=== PATIENT | female | born 1965 | race Caucasian/White ===

== ENCOUNTER 2017-08-16 01:50 | Emergency (ER) | payer BC ==
[~2017-08-16] VITALS: Ht 167.6 cm; Wt 72.0 kg
[~2017-08-16 01:50] MED LIST: CELEXA10 MG PO; MOTRIN800 MG PO; PHENTERMINE HCL15 MG PO; TYLENOL EXTRA500 MG PO
[2017-08-16 02:32] LABS: HEMATOCRIT 37.9 % (36.0-46.0); HEMOGLOBIN 12.6 G/DL (11.9-15.5); MCH 30.7 PG (29.0-34.0); MCHC 33.2 G/DL (30.0-36.0); MCV 92.2 FL (83-99); PLATELET COUNT 189 K/uL (156-360); RBC DIS.WIDTH-CV 13.4 % (11.8-14.6); RBC DIS.WIDTH-SD 45.9 % (39-53); RED BLOOD COUNT 4.11 M/uL (3.80-5.20); WHITE BLOOD COUNT 6.3 K/uL (4.1-10.2)
[2017-08-16 02:43] LABS: ALBUMIN 3.8 g/dL (3.2-4.8); CHLORIDE 106 mEq/L (99-109); POTASSIUM 3.9 mEq/L (3.7-5.4); SODIUM 142 mEq/L (136-147)
[2017-08-16 02:45] LABS: GLUCOSE 133 mg/dL (70-99)
[2017-08-16 02:46] LABS: TOTAL PROTEIN 6.1 g/dL (6.4-8.3)
[2017-08-16 02:47] LABS: TOTAL BILIRUBIN 0.3 mg/dL (0.0-1.0)
[2017-08-16 02:49] LABS: ALKALINE PHOSPHATASE 44 IU/L (3-129); CREATININE 1.1 mg/dL (0.6-1.3); GFR ESTIMATE (CALCULATED) 56 mL/min/
[2017-08-16 02:50] LABS: UREA NITROGEN (BUN) 18 mg/dL (9-23)
[2017-08-16 02:51] LABS: AST (GOT) 16 IU/L (2-34)
[2017-08-16 02:52] LABS: ALT (GPT) 14 IU/L (3-49)
[2017-08-16 02:58] LABS: QUANTITATIVE HCG < 4.0 MIU/ML
[2017-08-16 04:21] LABS: APPEARANCE CLEAR ((CLEAR)); BILIRUBIN NEGATIVE; BLOOD MODERATE; COLOR YELLOW ((YELLOW)); GLUCOSE (STRIP) NEGATIVE; KETONES NEGATIVE; LEUKOCYTES TRACE; NITRITE NEGATIVE; PROTEIN (STRIP) NEGATIVE
[2017-08-16 04:27] LABS: BACTERIA NONE SEEN /HPF; EPITHELIAL CELLS RARE /HPF; HYALINE CASTS 0-5 /LPF; MUCUS TRACE /LPF; RED BLOOD CELLS 0-5 /HPF (0-5); UCUL ADDED? NO; WHITE BLOOD CELLS 0-5 /HPF (0-5)
[2017-08-16 04:49] LABS: LIPASE 45 U/L (1.0-51.0)
[2017-08-16] MEDS ORDERED: LORTAB 5-325 M1 EACH PO (09:45)
[2017-08-16 10:26] VITALS: BP 93/58
== END 2017-08-16 10:28 | disposition home or self-care (01) ==
LOC: EME 01:50
PROVIDERS: Physician Assistant
DX: R10.11 Right upper quadrant pain (principal); R31.9 Hematuria, unspecified; R11.0 Nausea; R42 Dizziness and giddiness; M54.9 Dorsalgia, unspecified; K76.0 Fatty (change of) liver, not elsewhere classified
CPT/HCPCS: 74176; 76705; 80053; 81003; 83690; 84702; 85027; 99281; 99285; J1885; J2405; J3010; J7030